=== PATIENT | female | born 1940 | race Native Hawaiian/Other Pacific Islander ===

== ENCOUNTER 2016-06-02 09:57 | Outpatient (CLI) | payer OTHER ==
[~2016-06-02 09:57] MED LIST: ASA LO-DOSE81 MG PO; DEXILANT60 M1 PO; ESTR0.9T PO; GABA100C2 PO; HYDR200T3 PO; LEVO0.117 PO; NIFE30TA PO; OMEP40CA PO; PLAVIX75 MG PO; TIZA4TAB5 PO; ULTRAM ER100 MG PO; [UNRECOGNIZED DRUG - CODE] PO
[2016-06-02 10:35] LABS: PLATELET COUNT 221 K/uL (152-353)
[2016-06-02 11:48] LABS: POTASSIUM 4.8 mmol/L (3.6-5.2)
== END 2016-06-02 20:49 | disposition home or self-care (01) ==
LOC: LABW 09:57
PROVIDERS: Internal Medicine
DX: E55.9 Vitamin D deficiency, unspecified (principal); N18.4 Chronic kidney disease, stage 4 (severe)
CPT/HCPCS: 36415; 80053; 81000; 82043; 82306; 82570; 83735; 84100; 84155; 85027

== ENCOUNTER 2016-08-18 10:48 | Inpatient (IN) | payer OTHER ==
[2016-08-21 06:53] LABS: PLATELET COUNT 257 K/uL (152-353)
[2016-08-21 07:17] LABS: POTASSIUM 4.4 mmol/L (3.6-5.2)
== END 2016-09-11 09:18 | disposition still patient (30) ==
LOC: PAVB 10:48
PROVIDERS: ADMIT Internal Medicine
DX: I63.50 Cerebral infarction due to unspecified occlusion or stenosis of unspecified cerebral artery (principal); M62.81 Muscle weakness (generalized); N18.9 Chronic kidney disease, unspecified; R26.81 Unsteadiness on feet; R41.841 Cognitive communication deficit; R48.9 Unspecified symbolic dysfunctions; M75.41 Impingement syndrome of right shoulder; D64.9 Anemia, unspecified
CPT/HCPCS: 80053; 80061; 82306; 82542; 84443; 85027; 87081

== ENCOUNTER 2016-09-11 10:36 | Inpatient (IN) | payer OTHER | END 2016-10-12 10:17 | disposition still patient (30) | LOC: PAVB 10:36 | PROVIDERS: ADMIT Internal Medicine | DX: I63.50 Cerebral infarction due to unspecified occlusion or stenosis of unspecified cerebral artery (principal); M62.81 Muscle weakness (generalized); N18.9 Chronic kidney disease, unspecified; R26.81 Unsteadiness on feet; R41.841 Cognitive communication deficit; R48.9 Unspecified symbolic dysfunctions; M75.41 Impingement syndrome of right shoulder; D64.9 Anemia, unspecified | CPT/HCPCS: 81000 ==

== ENCOUNTER 2016-10-12 10:32 | Inpatient (IN) | payer OTHER | END 2016-11-11 15:26 | disposition still patient (30) | LOC: PAVB 10:32 | PROVIDERS: ADMIT Internal Medicine | DX: Z51.89 Encounter for other specified aftercare (principal) ==

== ENCOUNTER 2016-11-11 16:03 | Inpatient (IN) | payer OTHER | END 2016-12-12 09:48 | disposition still patient (30) | LOC: PAVB 16:03 | PROVIDERS: ADMIT Internal Medicine | DX: Z51.89 Encounter for other specified aftercare (principal) ==

== ENCOUNTER 2016-11-11 19:25 | Outpatient (CLI) | payer OTHER | END 2016-11-11 20:30 | disposition home or self-care (01) | LOC: LAB 19:25 | DX: R82.99 Other abnormal findings in urine (principal); R39.15 Urgency of urination | CPT/HCPCS: 81000 ==

== ENCOUNTER 2016-12-12 11:29 | Inpatient (IN) | payer OTHER | END 2017-01-12 08:43 | disposition still patient (30) | LOC: PAVB 11:29 | PROVIDERS: ADMIT Internal Medicine | DX: Z51.89 Encounter for other specified aftercare (principal) ==

== ENCOUNTER 2017-01-12 09:38 | Inpatient (IN) | payer OTHER ==
[2017-01-15] MEDS ORDERED: GABA300C2 PO (23:59)
[2017-01-16] MEDS ORDERED: LORA10TA3 PO (00:04)
[2017-01-16] MEDS ORDERED: VITAMIN D2000 UNIT OR (00:05)
[2017-01-16] MEDS ORDERED: LEXAPRO20 MG OR (00:06)
[2017-01-16] MEDS ORDERED: KEPPRA1000 MG PO (00:07)
[2017-01-16] MEDS ORDERED: CLOP75TA2 PO (00:08)
[2017-01-16] MEDS ORDERED: LIPITOR80 MG PO (00:08)
[2017-01-16] MEDS ORDERED: AMLO2.5T PO (00:09)
[2017-01-16] MEDS ORDERED: HYDR5TAB9 PO (00:10)
[2017-01-16] MEDS ORDERED: TYLENOL325 MG OR (00:11)
== END 2017-01-19 11:00 | disposition expired ==
LOC: PAVB 09:38
PROVIDERS: ADMIT Internal Medicine
DX: Z51.89 Encounter for other specified aftercare (principal)

== ENCOUNTER 2017-01-15 10:44 | Inpatient (IN) | payer OTHER ==
[2017-01-15] VITALS (10 sets, daily range): BP systolic 128–170; BP diastolic 62–86; TEMP 98.2–98.7; Ht 167.6 cm; Wt 75.9 kg
[~2017-01-15] VITALS: Ht 167.6 cm; Wt 75.9 kg
[2017-01-15 11:25] LABS: PLATELET COUNT 279 K/uL (152-353)
[2017-01-15 11:36] LABS: POTASSIUM 4.8 mmol/L (3.6-5.2)
--- NOTE | 2017-01-15 18:10 | NUR ---
PT HERE FROM ER VIA STRETCHER. PT ASSISTED TO BED. ORIENTED PT TO ROOM AND CONTROLS. PT VERBALIZED UNDERSTANDING. IV INFUSING WITHOUT DIFFICULTY TO R AC. INSTRUCTED PT ON DIET STATUS. PT VERBALIZED UNDERSTANDING. ASSESSMENT COMPLETE. SON AT
--- NOTE | 2017-01-15 21:34 | NUR ---
01/15/[id number] ASSISTED TO BEDSIDE COMMODE PT SAID SHE IS HURTING A LITTLE BIT IN THE EPIGASTRIC AREA WHICH RADIATES TO BACK.PT SAID SHE WILL WAIT A LITTLE WHILE AND THEN GET HER PAIN MEDICATION.CC
[2017-01-15] MEDS ORDERED: GABA300C2 PO (23:59)
[2017-01-16] MEDS ORDERED: LORA10TA3 PO (00:04)
[2017-01-16] MEDS ORDERED: VITAMIN D2000 UNIT OR (00:05)
[2017-01-16] MEDS ORDERED: LEXAPRO20 MG OR (00:06)
[2017-01-16] MEDS ORDERED: KEPPRA1000 MG PO (00:07)
[2017-01-16] MEDS ORDERED: LIPITOR80 MG PO (00:08)
[2017-01-16] MEDS ORDERED: CLOP75TA2 PO (00:08)
[2017-01-16] MEDS ORDERED: AMLO2.5T PO (00:09)
[2017-01-16] MEDS ORDERED: HYDR5TAB9 PO (00:10)
[2017-01-16] MEDS ORDERED: TYLENOL325 MG OR (00:11)
[2017-01-16 04:00] VITALS: BP 13/67; TEMP 98.9
[2017-01-16 07:30] VITALS: BP 154/75; TEMP 97.7
[2017-01-16 08:03] LABS: PLATELET COUNT 256 K/uL (152-353)
[2017-01-16 08:56] LABS: POTASSIUM 3.7 mmol/L (3.6-5.2)
--- NOTE | 2017-01-16 09:35 | NUR ---
DR VELASQUEZ ON FLOOR SEEING PATIENT. HE SPOKE WITH FRANKLIN IN [facility] REGARDING PATIENT BEING ABLE TO RECEIVE HIDA SCAN TODAY. SHE STATED WILL SEE ABOUT ORDERING MEDICATION FOR SCAN AND F/U WITH DR VELASQUEZ.
--- NOTE | 2017-01-16 18:06 | NUR ---
DR VELASQUEZ NOTIFIED OF HIDA SCAN RESULTS. STATED CAN TRY ICE CHIPS LONG PATIENT NOT HURTING & OR NAUSEA. IF PATIENT CONTINUES TO HURT CONTINUE WITH NPO STATUS. STATED RESUME PREVIOUS PAIN/NAUSEA MEDS.
[2017-01-16 20:00] VITALS: BP 151/72; TEMP 99.8
[2017-01-17] VITALS: BP 143/72; TEMP 99.8
[2017-01-17 04:00] VITALS: BP 148/72; TEMP 97.6
[2017-01-17 08:00] VITALS: BP 143/69; TEMP 99.2
[2017-01-17 11:39] VITALS: BP 146/67; TEMP 98.8
--- NOTE | 2017-01-17 15:41 | NUR ---
PATIENT CONTINUES TO COMPLAIN OF PAIN AND REQUIRES PAIN MEDICATION. DR VELASQUEZ HERE TO SEE PATIENT THIS AM AND REVEIW ALL TEST RESULTS AND ASSESS PATIENT STATUS. NEW ORDERS GIVEN AND ALSO SURGICAL CONSULT WITH DR DOMINIQUE ORDERED.
[2017-01-17 16:00] VITALS: BP 135/64; TEMP 99
[2017-01-17 20:00] VITALS: BP 144/60; TEMP 99
--- NOTE | 2017-01-17 20:15 | NUR ---
CALLED TO ROOM BY PCT, NATALIE SMITH, PCT NOTIFIED ME THAT PT'S O2 SAT WAS IN THE LOW 80'S% ON ROOM AIR. PLACED PT ON O2 AT 2LPM VIA NC AND O2 SAT INCREASED TO 95% AT THIS TIME. WILL CONTINUE TO MONITOR.
--- NOTE | 2017-01-17 20:46 | NUR ---
NOTIFIED DR. VELASQUEZ OF PT'S STATUS. 2 VIEW CHEST X-RAY ORDERED AT THIS TIME. NO FURTHER ORDERS. WILL CONTINUE TO MONITOR.
[2017-01-18] VITALS: BP 149/72; TEMP 98.5
[2017-01-18 04:00] VITALS: BP 141/66; TEMP 98.8
[2017-01-18 06:09] LABS: PLATELET COUNT 230 K/uL (152-353)
[2017-01-18 06:28] LABS: POTASSIUM 3.4 mmol/L (3.6-5.2)
[2017-01-18 08:00] VITALS: BP 185/89; TEMP 98.5
[2017-01-18 12:00] VITALS: BP 158/80; TEMP 98.7
[2017-01-18 15:59] VITALS: BP 134/65; TEMP 97.6
[2017-01-18 20:00] VITALS: BP 125/76; TEMP 98
[2017-01-19] VITALS: BP 124/71; TEMP 98.7
[2017-01-19 04:00] VITALS: BP 133/68; TEMP 98.8
[2017-01-19 05:06] LABS: PLATELET COUNT 227 K/uL (152-353)
[2017-01-19 05:52] LABS: POTASSIUM 3.3 mmol/L (3.6-5.2)
--- NOTE | 2017-01-19 07:00 | NUR ---
WENT INTO SEE PATIENT SHE STATED "STILL HURTING". HAD BEEN INFORMED IN REPORT THAT PATIENT HAD RECEIVED MEDICATION. PT LAYING IN BED. NAD NOTED AT THIS TIME.
[2017-01-19 08:00] VITALS: BP 147/74; TEMP 98.4
--- NOTE | 2017-01-19 08:10 | NUR ---
SPOKE WITH DR VELASQUEZ REGARDING PT'S STATING "STILL HURTING". INFORMED HIM WHEN PATIENT LAST RECEIVED PAIN MEDICATION. GAVE NEW ORDERS FOR GI COCKTAIL ONE TIME DOSE, CBC, CMP. STATED HE WOULD BE HERE TO SEE PATIENT TO ALLOW TIME FOR MEDICATION.
--- NOTE | 2017-01-19 08:30 | NUR ---
MEG KAY NP NOTIFIED ME OF PATIENT "HOLLERING OUT" IN PAIN. I INFORMED HER THAT PATIENT HAS ORDERS FOR MEDICATION AWAITING PHARMACY FOR PROFILING.
--- NOTE | 2017-01-19 08:35 | NUR ---
MEG KAY NP INFORMED ME PATIENT WAS "ASLEEP". PATIENT WAS OBSERVED LAYING IN BED ON LEFT SIDE. O2 IN PLACE AT THIS TIME.
--- NOTE | 2017-01-19 08:45 | NUR ---
IN PATIENT'S ROOM AFTER OBTAINING MEDICATION PREVIOUSLY ORDERED. PATIENT OBSERVED BLUE IN FACE WITH PALLOR LIPS. O2 OBSERVED OFF OF PATIENT. RIGO NATARAJAN PCT IN ROOM WITH ME AT THIS TIME. 79% ON RA. O2 INCREASED TO 5L NASAL CANNULA. I IMMEDIATELY LEFT ROOM TO OBTAIN VENTI MASK. RESPIRATORY PAGED TO ROOM AT THIS TIME.
--- NOTE | 2017-01-19 08:53 | NUR ---
RESPIRATORY THERAPIST SEBASTIAN MONTAGUE AT BEDSIDE. PATIENT AT 82% ON VENTI MASK. RESP THERAPY SWITCHED PATIENT TO NONREBREATHER AT THIS TIME. PATIENT ONLY INCREASED TO 88%. PRAVEEN ARMANDO LPN AT BEDSIDE CALLING DR VELASQUEZ INFORMING HIM PATIENT IN DISTRESS.
--- NOTE | 2017-01-19 08:57 | NUR ---
DR VELASQUEZ IN ROOM AT THIS TIME ASSESSING PATIENT WITH RESPIRATORY THERAPIST.
--- NOTE | 2017-01-19 09:00 | NUR ---
@ 0900 DR VELASQUEZ AND RESPIRATORY THERAPIST IN ROOM AT THIS TIME. CRASH CART BROUGHT IN TO ROOM PER MYSELF. PATIENT OBSERVED NON RESPONSIVE AT THIS TIME. STATED START CPR. CHEST COMPRESSIONS BEGAN PER SHIRIN CERVANTES. RT PAIGE BAGGING PATIENT VIA AMBU. CODE CALLED AT THIS TIME. @ 0901 PATIENT GIVEN EPINEPHRINE 1MG IVP TO L FA 22G. AM LABS OF CBC, CMP SHOWN TO DR VELASQUEZ. FOLLOWED WITH 10ML OF NS. NS 1000ML BOLUS INFUSING AT THIS TIME. @ 0902 ATROPINE 1MG IVP GIVEN FOLLOWED WITH 10ML OF NS. 0904 JAZMINE ADRIAN, RN AND ALEX RIVAS, RN FROM ER STAFF RESPONDED. @0905 PADS APPLIED TO PATIENT.PRAVEEN ARMANDO LPN SWITCHED TO CHEST COMPRESSIONS WITH SHIRIN CERVANTES. @0905 PATIENT PEA ON MONITOR. NO FEMEROL PULSE PALPATED. CPR CONTINUED. @0906 1MG EPINEPHRINE IVP GIVEN. R FA 20G IV STARTED PER JACINTO VALLEJO RN. KIERRA MCCRAY, RT DRAWN ABG. @0908 BECKIE APPLIED TO PATIENT. PATIENT STILL PEA ON MONITOR. 85% O2 SAT. @0909 ATROPINE 1MG IVP GIVEN. PATIENT STILL PEA ON MONITOR. NO FEMEROL PULSE PALPATED. @0911 EPINEPHRINE 1MG IVP GIVEN. @0912 BECKIE PAUSED; NO PULSE, PEA ON MONITOR, BECKIE RESUMED, NO BP, O2 70% VIA AMBU PER RESP THERAPIST. @0913 FAMILY NOTIFIED PER PRAVEEN ARMANDO LPN. @0915 BECKIE PAUSED, NO PULSE, PEA ON MONITOR, BECKIE RESUMED CPR, NO BP, O2 SAT 64% PER RESP THERAPY. @[address] VELASQUEZ PER KIERRA MCCRAY, RT. @0916 EPINEPHRINE 1MG IVP GIVEN. @0918 1 AMP BICARB IVP GIVEN. @09 ATROPINE 1MG IVP GIVEN. @09 BECKIE PAUSED, NO PULSE, PEA ON MONITOR, O2 SAT 62%. BECKIE RESUMED CPR. @09 EPINEPHRINE 1MG IVP GIVEN. @09 ATROPINE 1MG IVP GIVEN. @09 ALL IMMEDIATE FAMILY OF PATIENT HERE DR VELASQUEZ SPEAKING WITH THEM REGARDING PATIENT'S CONDITION. @0931 IV FLUIDS STOPPED. 0936 CPR STOPPED PATIENT ASYSTOLE ON MONITOR, NO HEART BEAT AUSCULTATED PER DR VELASQUEZ. @0937 DR VELASQUEZ CALLED TIME OF .
[2017-01-19 09:21] LABS: PLATELET COUNT 219 K/uL (152-353)
== END 2017-01-19 09:37 | disposition expired | DRG 391 ==
LOC: ED 10:44 → MED/SURG 17:40
PROVIDERS: Internal Medicine; ADMIT Family Medicine
DX: R10.11 Right upper quadrant pain (principal); I21.3 ST elevation (STEMI) myocardial infarction of unspecified site; I69.354 Hemiplegia and hemiparesis following cerebral infarction affecting left non-dominant side; E03.8 Other specified hypothyroidism; I10 Essential (primary) hypertension; M06.89 Other specified rheumatoid arthritis, multiple sites; D64.89 Other specified anemias; K21.9 Gastro-esophageal reflux disease without esophagitis
CPT/HCPCS: 36600; 80053; 81000; 82150; 82550; 82553; 82805; 83735; 84100; 84484; 85027; 87015; 87045; 87088; 87324; 87328; 87329; 87449; 87899; 92950; 96361; 96365; 96366; 96367; 96375; 96376; 99284; A9537; J0171; J0461; J2175; J2300; J2405; J2543; J3490